=== PATIENT | female | born 2000 | race Caucasian/White ===

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

== ENCOUNTER → 2020-03-10 13:12 | Outpatient (CLI) | payer MEDICAID ==
[2019-09-09 00:55] VITALS: BMI 30.3
== END | disposition home or self-care (01) ==
LOC: D.NM 13:00
PROVIDERS: ATTEND Nurse Practitioner Family
DX: R10.9 Unspecified abdominal pain (principal)

== ENCOUNTER 2020-03-25 06:00 | Day surgery (SDC) | payer MEDICAID ==
[2020-03-24 13:38] LABS: BASOPHILS 0.2 % (0-2); HEMATOCRIT 40.5 % (36.0-48.0); HEMOGLOBIN 13.2 g/dL (12-16); IMMATURE GRANULOCYTES 0.4 % (0-5); LYMPHOCYTES 37.9 % (15-50); MCH 30.8 pg (26.0-34.0); MCHC 32.6 g/dL (31.0-37.0); MCV 94.6 fL (80.0-100.0); MEAN PLATELET VOLUME 9.9 fL (7.4-10.4); MONOCYTES 8.6 % (2-11); NEUTROPHILS 49.9 % (40-80); PLATELET COUNT 257 10x3/uL (130-400); RBC 4.28 10x6/uL (4.00-5.40); WBC 9.5 10x3/uL (4.8-10.8)
[2020-03-24 13:44] LABS: CALC OSMOLALITY 279 mosm/kg (275-300); CALCIUM 9.3 mg/dL (8.5-10.1); CARBON DIOXIDE 27.3 mmol/L (21.0-32.0); CHLORIDE - SERUM 107 mmol/L (98-107); CREATININE - SERUM 0.9 mg/dL (0.6-1.3); GLUCOSE 95 mg/dL (74-106); POTASSIUM - SERUM 3.8 mmol/L (3.5-5.1); SODIUM 141 mmol/L (136-145); UREA NITROGEN 11 mg/dL (7-18); eGFR NON AFRICAN AMERICAN 85 mL/min (90-120)
[~2020-03-25] VITALS: Ht 154.9 cm; Wt 72.6 kg
--- NOTE | ~2020-03-25 | OP ---
PATIENT NAME: SHERIF PINZON MEDICAL RECORD: [id number] :00 LOCATION:D[facility] ADMISSION DATE: SURGEON: EMEKA CAST MD DATE OF OPERATION: 03/25/2020 PREOPERATIVE DIAGNOSES: 1. Chronic cholecystitis with gallstones 2. Hypertension. POSTOPERATIVE DIAGNOSES: 1. Chronic cholecystitis with gallstones. 2. Hypertension. PROCEDURE: Laparoscopic cholecystectomy. SURGEON: Emeka Cast MD REPORT OF PROCEDURE: The patient's abdomen was prepped and draped in sterile fashion. A cutdown was made on the superior aspect of the umbilicus, 0 Vicryls were placed in the fascia bilaterally and the fascia was incised with 15-blade. I then bluntly entered the peritoneal cavity and placed a 12-mm Dorina port. Under direct visualization, a 5-mm trocar was placed in the epigastrium and two more 5-mm trocars were placed in right subcostal region. The gallbladder was grasped and elevated. The cystic artery and cystic duct were dissected free. I had my critical view of safety. The structures were clipped proximally and distally and ligated in standard fashion. The gallbladder was then taken off the liver bed using electrocautery and placed into the right upper quadrant. Any bleeding from the liver bed was then treated with electrocautery. The ports and insufflation were then removed and the gallbladder was taken out through the umbilicus. The umbilical fascia was closed with interrupted 0 Vicryls times 3. The wounds were then irrigated out with normal saline, infused with 10 mL of 0.25% Marcaine with epinephrine. Skin incisions were all closed with subcutaneous 5-0 Monocryl and dressed appropriately. COMPLICATIONS: None. CONDITION: Stable. ANESTHESIA: General endotracheal and local. BLOOD LOSS: Minimal. TRANSINT:[id number] Voice Confirmation ID: [id number] DOCUMENT ID: [id number] EMEKA CAST MD CC: INGRID FLANNERY [id number] DICTATION DATE: 03/25/20 0856 TAKE OUT WAITRESS: 03/25/[address] [facility] 03/25/20 [facility] [address] [place] [address]
[~2020-03-25 06:00] MED LIST changes: +LEXAPRO10 MG PO; +NORA-BE0.35 MG PO; +PROCARDIA XL60 MG PO
[2020-03-25 06:43] VITALS: BP 131/92; Ht 154.9 cm; Wt 72.6 kg
[2020-03-25 06:56] LABS: HCG URINE NEGATIVE (NEGATIVE)
[2020-03-25] MEDS ORDERED: HYDROCODON-ACE1 EA10 PO (08:49)
--- NOTE | 2020-03-25 12:05 | NUR ---
NAUSEA IMPROVED. IV D/C'D WITH CANNULA INTACT. DISCHARGE INSTRUCTIONS GIVEN
--- NOTE | 2020-03-25 12:06 | NUR ---
VOIDED WITHOUT DIFFICULTY
== END 2020-03-25 11:15 | disposition home or self-care (01) ==
LOC: D.OPS 06:00 → D.PAN 08:00 → D.OPS 08:00
PROVIDERS: ATTEND Surgery
DX: K80.10 Calculus of gallbladder with chronic cholecystitis without obstruction (principal); I10 Essential (primary) hypertension; J45.909 Unspecified asthma, uncomplicated

== ENCOUNTER 2020-06-17 16:31 | Emergency (ER) | payer MEDICAID ==
[~2020-06-17] VITALS: Ht 154.9 cm; Wt 70.5 kg
[~2020-06-17 16:31] MED LIST changes: +HYDROCODON-ACE1 EA10 PO
[2020-06-17 16:36] VITALS: BP 117/59; Ht 154.9 cm; Wt 70.5 kg
[2020-06-17 17:11] LABS: BASOPHILS 0.1 % (0-2); EOSINOPHILS 0 % (0-7); HEMATOCRIT 38.7 % (36.0-48.0); HEMOGLOBIN 13.3 g/dL (12-16); IMMATURE GRANULOCYTES 0.4 % (0-5); LYMPHOCYTES 10.4 % (15-50); MCH 31.2 pg (26.0-34.0); MCHC 34.4 g/dL (31.0-37.0); MCV 90.8 fL (80.0-100.0); MEAN PLATELET VOLUME 10.2 fL (7.4-10.4); MONOCYTES 10.9 % (2-11); NEUTROPHILS 78.2 % (40-80); PLATELET COUNT 225 10x3/uL (130-400); RBC 4.26 10x6/uL (4.00-5.40); RDW 12.7 % (11.5-14.5)
[2020-06-17 17:26] LABS: ANION GAP 15.7 mmol/L (8-16); CALCIUM 9.5 mg/dL (8.5-10.1); CARBON DIOXIDE 23.7 mmol/L (21.0-32.0); CREATININE - SERUM 1.4 mg/dL (0.6-1.3); POTASSIUM - SERUM 3.4 mmol/L (3.5-5.1)
[2020-06-17 17:28] LABS: BILIRUBIN - DIRECT 0.07 mg/dL (0.00-0.30); BILIRUBIN - INDIRECT 0.31 mg/dL (0.00-1.00); BILIRUBIN - TOTAL 0.38 mg/dL (0.2-1.3); PROTEIN - SERUM 8.7 g/dL (6.4-8.2)
[2020-06-17 17:34] LABS: ALBUMIN 3.5 g/dL (3.4-5.0)
[2020-06-17 17:55] LABS: UDS - AMPHET NEGATIVE QUAL (NEGATIVE); UDS - BARB NEGATIVE QUAL (NEGATIVE); UDS - BENZO NEGATIVE QUAL (NEGATIVE); UDS - COCAINE NEGATIVE QUAL (NEGATIVE); UDS - OPIATE NEGATIVE QUAL (NEGATIVE); UDS - PCP NEGATIVE QUAL (NEGATIVE); UDS - THC POSITIVE QUAL (NEGATIVE)
[2020-06-17 18:13] LABS: BILIRUBIN NEGATIVE (NEGATIVE); KETONE MODERATE mg/dL (NEGATIVE); NITRITE POSITIVE (NEGATIVE); UROBILINOGEN NORMAL mg/dL (< 2)
[2020-06-17 18:14] LABS: BACTERIA MODERATE /HPF (NONE SEEN); EPITHELIAL CELLS 0-5 /hpf (0-5); WHITE CELLS - URINE >50 HPF (0-4)
[2020-06-17 18:17] LABS: HCG URINE NEGATIVE (NEGATIVE)
[2020-06-17 18:33] LABS: AMYLASE - SERUM 41 U/L (25-115); LIPASE 84 U/L (73-393); TROPONIN-I < 0.017 ng/mL (0.000-0.060)
[2020-06-17] MEDS ORDERED: LEVOFLOXACIN500 MG PO (19:23)
== END 2020-06-17 20:57 | disposition home or self-care (01) ==
LOC: D.ER 16:31
PROVIDERS: Family Medicine
DX: N39.0 Urinary tract infection, site not specified (principal); E86.0 Dehydration; I10 Essential (primary) hypertension; M54.9 Dorsalgia, unspecified; K21.9 Gastro-esophageal reflux disease without esophagitis